=== PATIENT | female | born 1980 | race Caucasian/White ===

== ENCOUNTER → 2016-10-07 | Day surgery (SDC) | payer OTHER ==
[~2016-10-07] VITALS: Ht 160 cm; Wt 66.3 kg
[~2016-10-07] MED LIST: *MEPERIDINE 25 MG INJ VIAL PERIprocedural Use ONLY ONE; ACETAMINOPHEN 1000 MG/100 ML VIAL IV ONE; AMOX500C PO; CHLORHEXIDINE GLUCONATE 2 % 1 PACK (2 CLOTHS) TOPICAL PRN; DEXAMETHASONE SOD PHOS 4 MG/ML VIAL ONE; DO NOT ADM ANY ANTICOAGULANT DRUGS PRN; ESTROGENS CONJUGATED VAG CREA 15 APPL/30 GM TUBE ONE; FAMOTIDINE 20 MG/2 ML VIAL ONE; FISHCAP4 PO; INSULIN HUMAN REGULAR 1,000 UNITS/10 ML VIAL SQ PRN; KETOROLAC TROMETHAMINE 60 MG/2 ML (IM) VIAL IM ONE; LACTATED RINGER'S 1000 ML IV PRN; METOPROLOL TARTRATE 25 MG TAB PO PRN; MIDAZOLAM HCL 2 MG/2 ML VIAL ONE; MULTTAB67 PO; NEOSTIGMINE 3 MG/3 ML SYR IV ONE; ONDANSETRON HCL 4 MG/2 ML VIAL IV PUSH ONE; ONDANSETRON HCL 4 MG/2 ML VIAL IV PUSH PRN; POVIDONE IODINE 5% (ANTISEPSIS KIT) 4 APPLICATIONS EACH NARE PRN; PROPOFOL 200 MG/20 ML AMP IV ONE; SODIUM CHLORID 0.9% 500 ML IV PRN; ZYRT10CA PO; ceFAZolin INJ 1,000 MG VIAL ONE; diphenhydrAMINE HCL 50 MG/ML VIAL ONE; fentaNYL CITRATE 250 MCG/5 ML AMP ONE; oxyCODONE/ACETAMINOPHEN 5 MG/325 MG TAB PO PRN
[2016-10-07 06:48] VITALS: BP 119/72; PULSE 81; RESP 16; TEMP 98.7; O2SAT 100
--- NOTE | 2016-10-07 10:31 | MP ---
cc: Tere ARAMBULA DATE OF SURGERY 10/07/2016 PREOPERATIVE DIAGNOSIS 1. Large pelvic mass 2. History of endometriosis 3. Postcoital bleeding POSTOPERATIVE DIAGNOSIS 1. Large pelvic mass 2. History of endometriosis 3. Postcoital bleeding 4. Endometriosis plus adhesions of the pelvis. PROCEDURE A laparoscopic exam with a bilateral oophorectomy, lysis of adhesions, coagulation of endometriosis, coagulation of the cervix. ANESTHESIA General endotracheal intubation SURGEON Tere Arambula MD ACCOUNT ADMINISTRATOR Jo Ann Vo, R2 FINDINGS Examination under anesthesia, vagina was clean. The cervix was parous without lesions. No evidence of bleeding. There is a central pelvic mass 8-9 cm. It was somewhat mobile. The laparoscopic exam revealed a right ovary that was probably 8 cm in diameter. It was an endometrioma. It was plastered to the pelvic sidewall which was taken down before removal. The left ovary had some adhesive disease as well that was taken down. The cervix was free. There were no adhesions except posteriorly there were some adhesions of the sigmoid colon. I felt this was going to be to hard to take down and that is why I just coagulated her endocervix. The appendix was normal in length and caliber, but it was also encased in adhesions to the pelvic sidewall. Upper abdomen looked normal. GI tract looked normal. COMPLICATIONS None COUNTS Correct ESTIMATED BLOOD LOSS 50 cc FLUIDS Crystalloids CONDITION The patient tolerated the procedure well, went to the recovery room in good condition. PROCEDURE Patient was taken to the operating room, identified by name band and verbally given a general anesthetic, carefully placed in dorsal lithotomy position, prepped and draped for laparoscopic vaginal surgery and a Madsen inserted. A time-out was taken and we proceeded with examination under anesthesia with the above findings. A sponge stick with a sponge was placed into the vaginal canal for manipulation of the cervix. The attention was turned to the umbilical area. A small subumbilical incision was made with a 5-mm trocar. The abdomen was entered without difficulty and a Pneumoperitoneum was created with 3 degrees of CO2. We took a look with the scope. There was a very large ovary and at this point we made two more incisions inferolateral to the umbilicus, one on the left a 12-mm and one on the right a 5-mm under direct vision without difficulty. The first order of business was to remove this large ovary. It was plastered to the pelvic sidewall. We took this down by blunt and sharp dissection. There was quite a bit of oozing. After this, we took the infundibulopelvic ligament far away from the pelvic sidewall with the Harmonic scalpel, put it in a bag. During this point, the endometrioma ruptured and we irrigated the pelvis with a large amount of fluid. The pedicle was hemostatic. The area where we took it down was oozing quite a bit. Attention was turned to the left ovary. Again, we took down the adhesions around this ovary and took the infundibulopelvic ligament down with a Harmonic scalpel, freed up the ovary and then removed this with the EndoCatch bag as well. At this point, we coagulated the endometriosis. There was several spots in the posterior cul-de-sac between the uterosacral ligaments. Once this had been accomplished, we looked at the appendix and upper abdomen with the above findings. There was a small piece of colon attached firmly to the cervix posteriorly and felt that it would be easier to just coagulate the endocervix because of her postcoital bleeding. At this point, we went to the bottom, put a speculum into the vagina and with the ball from the LEEP procedure, we coagulated the apex of the endocervix with good results. At this point we went back up top and we put some adhesive material over the area that was oozing and at that point, coagulation was excellent. Hemostasis was perfect and we irrigated with a large amount of fluid afterwards until fluid was clear. At this point, we decided to terminate the procedure. We removed the 12-mm trocar, put a 2-0 Vicryl [id number] in the fascia. We released the air through the second and third punctures and we sewed the skin with a 4-0 Monocryl in a subcuticular manner. She tolerated the procedure well, went to the recovery room in good condition. R. MD PARDEEP Diallo/GIANNA /9:53 AM /10:12 AM
[2016-10-07 11:06] VITALS: BP 110/61; PULSE 66; RESP 20; TEMP 98.3; O2SAT 100
== END | disposition home or self-care (01) ==
LOC: HSDC 05:53
PROVIDERS: ATTEND Obstetrics & Gynecology
DX: N80.1 Endometriosis of ovary (principal); N80.3 Endometriosis of pelvic peritoneum; N83.02 Follicular cyst of left ovary; N73.6 Female pelvic peritoneal adhesions (postinfective); N93.0 Postcoital and contact bleeding; N94.10 Unspecified dyspareunia; Z88.5 Allergy status to narcotic agent; Z88.2 Allergy status to sulfonamides
CPT/HCPCS: 57522; 58661; 58662; 88305; J0131; J0690; J1100; J1200; J1885; J2175; J2250; J2405; J2710; J3010; J7120